=== PATIENT | male | born 1930 | race Caucasian/White ===

== ENCOUNTER 2018-02-14 19:31 | Inpatient (IN) ==
--- NOTE | 2018-02-14 20:11 | Emergency Department Note ---
Weakness HPI - General Chief complaint: Weakness Stated complaint: weakness Time Seen by Provider: 02/14/18 19:43 Source: patient Mode of arrival: wheelchair Limitations: no limitations - History of Present Illness HPI Narrative: This 87-year-old gentleman comes emergency room brought by family because of abnormal breathing. Patient reports that he is quite tired but attributes this to his sore back and difficulties laying down in his mattress etc. is a good historian and reports that she noticed his chest moving up and down in the just has not been breathing normally. It seems like it started for him to breathe. He becomes quite short of breath with limited activity such as just walking a limited amount. He has had a gradual increase in swelling of his lower extremities over the last 1-2 months. They have not been weeping. He is inactive and felt some weakness. REVIEW OF SYSTEMS: Denies chest pain or palpitations. Denies wheeziness although he has had some moaning type of sounds when he is breathing per his . Denies abdominal pain, nausea or vomiting. No diarrhea or hematochezia but he has some chronic constipation for which he tries to take prunes or prune juice. He has a significant history of bad gas and belching. No complaints of dysuria or frequency or prostate problems. 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 Some depression after he had to close a somnolent 2014. Denies headaches. Has felt some fatigue. - Related Data Home Medications Medication Instructions Recorded Confirmed Digoxin [Digitek] 125 mcg PO Q3-4DAYS 02/14/18 02/14/18 Diltiazem [Cardizem Cd] 240 mg PO DAILY 02/14/18 02/14/18 Furosemide [Lasix] 40 mg PO BID 02/14/18 02/14/18 Levothyroxine [Synthroid] 50 mcg PO HS 02/14/18 02/14/18 Lisinopril [Zestril] 10 mg PO QDAY 02/14/18 02/14/18 Potassium Chloride [Kdur] 20 meq PO DAILY 02/14/18 02/14/18 Allergies Allergy/AdvReac Type Severity Reaction Status Date / Time No Known Drug Allergies Allergy Verified 02/14/18 19:36 Past Medical History - Past Medical History Medical history: Reports: CHF (Admitted 2002. Sees Dr[address] Rico every 3-4 months.) , hypertension, hypothyroidism, obesity (morbid). Denies: cancer, COPD, CVA, DM , myocardial infarction, TIA - Social History smoking status: Never smoker Physical Exam Limitations: no limitations General appearance: alert, in no apparent distress Head: atraumatic, normocephalic Eye: Present: EOMI, conjunctival injection, other (Moderate amount of yellow white mucoid discharge in all 4 corners of his eyes.) ENT: mucous membranes moist, other Neck: Present: trachea midline Respiratory: Present: prolonged expiratory phase (With some abdominal). Absent : respiratory distress, wheezes, stridor, accessory muscle use Cardiovascular: Present: regular rate, normal rhythm. Absent: systolic murmur, diastolic murmur Abdominal: Present: soft, other (Morbidly large and domed.). Absent: distention , tenderness, guarding, rebound, rigidity, organomegaly, mass Extremities: Present: pretibial edema (Massive 3-4+ bilateral). Absent: calf tenderness Neurological: Present: alert, oriented X3 Psychiatric: Present: normal affect, normal mood Skin: Present: warm, dry Course Course Narrative: 7:53 PM Increase in shortness of breath type of symptoms in a morbidly obese massively edematous pleasant gentleman. Difficulties getting his saturations above 80% with him lying down. Sitting up in triage he was 90+ percent. We will start with a rainbow of labs plus an ABG, chest x-ray. EKG demonstrates right bundle branch block with small Q's in V1 and V2 and atrial fibrillation without rapid ventricular response, rate in the 70s. Vital Signs Temperature 97.1 F 02/14/18 19:31 Pulse Rate 108 H 02/14/18 19:31 Respiratory Rate 22 02/14/18 19:31 Blood Pressure 143/71 02/14/18 19:31 Pulse Oximetry (%) 99 02/14/18 19:31 Temperature 97.1 F 02/14/18 19:31 Pulse Rate 73 02/14/18 21:15 Respiratory Rate 21 02/14/18 21:15 Blood Pressure 138/81 02/14/18 20:34 Pulse Oximetry (%) 93 02/14/18 21:15 Weakness - MDM Narrative Medical decision making narrative: ABG with chronic respiratory failure (HC03 of 38.8) and acute component (pH 7.31 , PC02 of 77). Chest XRAY with at least moderate CHF and gross cardiomegaly. ECG - a fib; rate controlled. RBBB. BiPAP added and patient resting well. FiO2 at 28% and sats running 88%. Aguilar also placed. I spoke with patient regarding his end-of-life wishes. He indicates that he does not want to be left in a prolonged debilitated state dependent on machines or tubes or interventions that are aggressive he has not specifically spoken with his family that he remembers. However, his reports filling out a form for herself with the assistance of their daughter who is an civil rights attorney and she believes that one was completed also for Mr. Rock. She will check in the morning. A copy can be faxed hopefully. I spoke with Dr. Frankel, hospitalist, after noting availability of an ICU bed. He kindly accepted care of this patient. - Lab Data Result diagrams: 02/14/18 20:15 02/14/18 20:15 Lab Results 02/14/18 02/14/18 02/14/18 Range/Units 20:15 20:15 20:15 WBC 10.3 (4.5-11.0) K/mcL RBC 5.37 (4.50-5.90) M/mcL Hgb 16.1 (13.5-16.5) g/dL Hct 50.6 (41.0-55.0) % MCV 94.3 (80.0-100.0) fL MCH 30.0 (26.0-34.0) pg MCHC 31.8 (31.0-36.0) g/dL RDW 16.6 H (11.5-14.5) % Plt Count 206 (140-440) K/mcL MPV 8.4 (7.4-10.4) fL Gran % 74.3 (38.0-78.0) % Lymph % (Auto) 16.7 (15.5-49.0) % [place] % (Auto) 7.8 (1.0-12.0) % Eos % (Auto) 0.8 (0.0-7.0) % Baso % (Auto) 0.4 (0.0-2.0) % Gran # 7.6 (1.8-8.0) K/mcL Lymph # (Auto) 1.7 (1.5-4.8) K/mcL [place] # (Auto) 0.8 (0.1-0.9) K/mcL Eos # (Auto) 0.1 (0.0-0.7) K/mcL Baso # (Auto) 0 (0.0-0.3) K/mcL Sodium 134 (133-145) mmol/L Potassium 5.1 (3.3-5.1) mmol/L Chloride 91 L (96-108) mmol/L Carbon Dioxide 33 H (22-30) mmol/L Anion Gap 10.0 (8-16) BUN 16 (8-23) mg/dl Creatinine 1.2 (0.7-1.2) mg/dl GFR Calculation 54 Glucose 97 (70-105) mg/dL Calcium 9.2 (8.6-10.4) mg/dl Total Bilirubin 0.5 (0.0-1.0) mg/dL AST 19 (0-37) U/l ALT 6 (0-40) U/l Alkaline Phosphatase 83 (39-117) U/L Total Creatine Kinase 51 (24-195) IU/L Troponin T (0-0.03) ng/ml NT-Pro-B Natriuret Pep 784.7 H (0-450) pg/ml Total Protein 7.3 (5.9-8.4) gm/dL Albumin 3.4 (3.2-5.2) gm/dL Globulin 3.9 H (2.2-3.7) gm/dL Albumin/Globulin Ratio 0.9 L (1.0-2.3) Digoxin ng/mL Digoxin Dose Digox Last Dose Time 02/14/18 02/14/18 Range/Units 20:15 20:15 WBC (4.5-11.0) K/mcL RBC (4.50-5.90) M/mcL Hgb (13.5-16.5) g/dL Hct (41.0-55.0) % MCV (80.0-100.0) fL MCH (26.0-34.0) pg MCHC (31.0-36.0) g/dL RDW (11.5-14.5) % Plt Count (140-440) K/mcL MPV (7.4-10.4) fL Gran % (38.0-78.0) % Lymph % (Auto) (15.5-49.0) % [place] % (Auto) (1.0-12.0) % Eos % (Auto) (0.0-7.0) % Baso % (Auto) (0.0-2.0) % Gran # (1.8-8.0) K/mcL Lymph # (Auto) (1.5-4.8) K/mcL [place] # (Auto) (0.1-0.9) K/mcL Eos # (Auto) (0.0-0.7) K/mcL Baso # (Auto) (0.0-0.3) K/mcL Sodium (133-145) mmol/L Potassium (3.3-5.1) mmol/L Chloride (96-108) mmol/L Carbon Dioxide (22-30) mmol/L Anion Gap (8-16) BUN (8-23) mg/dl Creatinine (0.7-1.2) mg/dl GFR Calculation Glucose (70-105) mg/dL Calcium (8.6-10.4) mg/dl Total Bilirubin (0.0-1.0) mg/dL AST (0-37) U/l ALT (0-40) U/l Alkaline Phosphatase (39-117) U/L Total Creatine Kinase (24-195) IU/L Troponin T < 0.01 (0-0.03) ng/ml NT-Pro-B Natriuret Pep (0-450) pg/ml Total Protein (5.9-8.4) gm/dL Albumin (3.2-5.2) gm/dL Globulin (2.2-3.7) gm/dL Albumin/Globulin Ratio (1.0-2.3) Digoxin 0.3 ng/mL Digoxin Dose Not Reportable Digox Last Dose Time Not Reportable - Radiology Data Radiology results reviewed: Yes I reviewed the patient's radiology results. - EKG Data EKG results narrative: No acute coronary syndrome findings. This ECG will be read by a pulp cooker. Disposition Pt seen by SHIP ENGINEER/PA only: No Clinical Impression: Anasarca CHF (congestive heart failure), NYHA class III Qualifiers: Congestive heart failure type: unspecified Qualified Code(s): I50.9 - Heart failure, unspecified Respiratory failure, [id number] Qualifiers: Respiratory failure complication: hypoxia and hypercapnia Qualified Code(s): J96.21 - Acute and chronic respiratory failure with hypoxia; J96.22 - Acute and chronic respiratory failure with hypercapnia Disposition: Home, Self-Care Condition: Serious Referrals: Petr Coto MD [Primary Care Provider] -
[2018-02-14] MEDS ORDERED: FUROSEMIDE 40 MG/4 ML VIAL IV ONE (20:28)
[2018-02-14 20:49] LABS: Basophils # (Auto) 0 K/mcL (0.0-0.3); Basophils % (Auto) 0.4 % (0.0-2.0); Eosinophils # (Auto) 0.1 K/mcL (0.0-0.7); Eosinophils % (Auto) 0.8 % (0.0-7.0); Granulocytes % (Auto) 74.3 % (38.0-78.0); Lymphocytes # (Auto) 1.7 K/mcL (1.5-4.8); Lymphocytes % (Auto) 16.7 % (15.5-49.0); Mean Cell Volume 94.3 fL (80.0-100.0); Mean Corpuscular HGB Conc 31.8 g/dL (31.0-36.0); Monocytes # (Auto) 0.8 K/mcL (0.1-0.9); Monocytes % (Auto) 7.8 % (1.0-12.0); Platelet Count 206 K/mcL (140-440); RBC 5.37 M/mcL (4.50-5.90); Red Cell Distribution Width 16.6 % (11.5-14.5)
[2018-02-14 21:09] LABS: proBNP 784.7 pg/ml (0-450)
[2018-02-14 21:11] LABS: ALT/SGPT 6 U/l (0-40); Albumin 3.4 gm/dL (3.2-5.2); Albumin/Globulin Ratio 0.9 (1.0-2.3); Alkaline Phosphatase 83 U/L (39-117); Blood Urea Nitrogen 16 mg/dl (8-23)
--- NOTE | 2018-02-14 21:58 | Internal Med History&Physical ---
Medical - H&P: HPI Patient information: Note initiated : 02/14/18 at 9:55 pm Service Date, if different from initiated Date: [] Patient: Walker Rock a 87 y/o M admitted on for weakness. Chief Complaint: [] History of present illness: Mr. Rock is a 87 year old M with history of morbid obesity, congestive heart failure, atrial fibrillation, obstructive sleep apnea not using CPAP. The patient notes he was doing well approximately a week ago when he came down with a viral syndrome-head cold. The patient notes that since then he has not been doing very well. He has been more tired and fatigued than usual. He has been having some runny nose cough and just a generalized sensation of weakness. This has progressively gotten worse. At baseline patient does not do much activities however the and the patient denies any shortness of breath or any change in his activity level. Today the noticed that his breathing pattern was abnormal and he showed signs of labored breathing and therefore they brought him to the hospital. The patient denies any complaints like headache dizziness chest pain palpitations shortness of breath any present cough no GI or symptoms. He has chronic arthritis related pain mostly in the left knee which he plans to have surgery for. The patient notes that he may have had increased swelling in his feet. He denies any noncompliance with medications, denies any increased use of salt. Increase consumption of fluids. In the emergency room the patient was afebrile, heart rate 76 respirations 24 blood pressure 138/81, he was hypoxic with the oxygen saturation in the 70s. Labs showed hemoglobin of 16, WBC 10.3, platelets 206. Sodium 134 potassium 5.1 , chloride 91, bicarbonate 33 BUN 16 creatinine 1.2 glucose 97 BNP is 784. Digoxin level pending. ABG was drawn which showed pH of 7.31 PCO2 77 PO2 50 this was on 3 L of oxygen. The patient was placed on BiPAP. Chest x-ray showed bilateral increased interstitial markings consistent with heart failure, he also had cardiomegaly. EKG showed low voltage, right axis, atrial fibrillation, right bundle branch block. No previous EKG to compare. I reviewed his previous echocardiogram done in 2015 which showed mild LV enlargement, moderate LVH and normal systolic function. He also had a cardiac perfusion study done in the same month which showed ejection fraction of 51% and inferior wall hypoperfusion which was attributed to diaphragmatic artifact. Given that the patient has had significant volume overload issues, hypoxic requiring BiPAP to maintain oxygen levels he was admitted to PCU for further management All systems: reviewed and no additional remarkable complaints except as stated ( As per HPI rest negative) Medical - H&P: PMH Medical history: GABBI-noncompliant with CPAP Congestive heart failure Gout Osteoarthritis Hypothyroidism Atrial fibrillation Morbid obesity Surgical history: Abdominal hernia surgery Family history: reviewed and not pertinent Social history: Lives with Social alcohol use Denies any smoking Denies decreased substance use Medical - H&P: Meds Home Medications Medication Instructions Recorded Confirmed Type Digoxin [Digitek] 125 mcg PO Q3-4DAYS 02/14/18 02/14/18 History Diltiazem [Cardizem Cd] 240 mg PO DAILY 02/14/18 02/14/18 History Furosemide [Lasix] 40 mg PO BID 02/14/18 02/14/18 History Levothyroxine [Synthroid] 50 mcg PO HS 02/14/18 02/14/18 History Lisinopril [Zestril] 10 mg PO QDAY 02/14/18 02/14/18 History Potassium Chloride [Kdur] 20 meq PO DAILY 02/14/18 02/14/18 History Allergies Allergy/AdvReac Type Severity Reaction Status Date / Time No Known Drug Allergies Allergy Verified 02/14/18 19:36 Medical - H&P: Exam - Constitutional Vitals: Temp Pulse Resp BP Pulse Ox 97.1 F 64 13 138/81 94 02/14/18 19:31 02/14/18 21:50 02/14/18 21:50 02/14/18 20:34 02/14/18 21:50 Exam: GENERAL: The patient is a well-developed, well-nourished in no apparent distress. Is alert and oriented x3. Morbidly obese in BiPAP VITAL SIGNS: Reviewed and as noted elsewhere. HEENT: Head is normocephalic and atraumatic. Extraocular muscles are intact. Pupils are equal, round, and reactive to light. Nares appeared normal. Mouth appears any without lesions. Mucous membranes are moist. Mild discharge in the inner canthus of both eyes NECK: Normal to inspection, Supple, No lymphadenopathy or thyromegaly. Short neck LUNGS: Air entry equal on both sides, bilateral basilar crackles noted mild, patient in BiPAP not in distress. HEART: Regular rate and rhythm irregular, S1 and S2 heard, no Gallop, S3 or Rub Noted, No Gross murmur heard. ABDOMEN: Soft, nontender, and nondistended. Positive bowel sounds. No hepatosplenomegaly was noted. Large pannus, difficult to do to palpation, large scars noted from previous hernia surgery EXTREMITIES: No cyanosis, clubbing, rash, lesions, edema is present++++ NEUROLOGIC: Cranial nerves II through XII are grossly intact. Motor and Sensory System Grossly Intact PSYCHIATRIC: Normal affect, Normal Mood. Appropriate Behavior. SKIN: No ulceration or wounds noted, No jaundice, No rash noted. Medical - H&P: Reslt - Labs CBC & Chem 7: 02/14/18 20:15 02/14/18 20:15 Labs: Short CBC 02/14/18 Range/Units 20:15 WBC 10.3 (4.5-11.0) K/mcL Hgb 16.1 (13.5-16.5) g/dL Hct 50.6 (41.0-55.0) % Plt Count 206 (140-440) K/mcL BMP 02/14/18 20:15 Sodium 134 Potassium 5.1 Chloride 91 L Carbon Dioxide 33 H BUN 16 Creatinine 1.2 Glucose 97 Calcium 9.2 Cardiac Enzymes 02/14/18 02/14/18 Range/Units 20:15 20:15 Total Creatine Kinase 51 (24-195) IU/L Troponin T < 0.01 (0-0.03) ng/ml Liver Function 02/14/18 Range/Units 20:15 Total Bilirubin 0.5 (0.0-1.0) mg/dL AST 19 (0-37) U/l ALT 6 (0-40) U/l Alkaline Phosphatase 83 (39-117) U/L Albumin 3.4 (3.2-5.2) gm/dL Medical - H&P: A/P - Narrative A/P Narrative: A/P Acute hypoxic Hypercapnic respiratory failure Congestive heart failure/ Systolic and diastolic Morbid Obesity Atrial fibrillation Gout Hypothyroidism Osteoarthritis Plan Admit to PCU status BIPAP to maintain oxygen levels Aguilar in place, lasix given in ER draining well IV lasix 40mg bid for now, see how he responds monitor electrolytes, await dig level and tsh continue home medications for chr medical issues Dr Rico seems to be the systems development manager, not sure why pt is not anticoagulated for afib DVT - lovenox sq Diet Cardiac DNR code status, reviewed with patient, present, they have a will.
[2018-02-14] MEDS ORDERED: ACETAMINOPHEN 325 MG TABLET PO PRN (22:48)
[2018-02-14] MEDS ORDERED: NALOXONE HCL 0.4 MG/ML VIAL IV PRN (22:48)
[2018-02-14] MEDS ORDERED: ENOXAPARIN 40 MG/0.4 ML SYRINGE ONE (22:57)
[2018-02-14] MEDS: ENOXAPARIN 40 MG/0.4 ML SYRINGE SQ SCH (23:20)
[2018-02-14] MEDS: 0.9 % SODIUM CHLORIDE 10 ML SYRINGE IV SCH (23:21)
[2018-02-15] MEDS: 0.9 % SODIUM CHLORIDE 10 ML SYRINGE IV SCH ×3 (05:16→21:13)
--- NOTE | 2018-02-15 06:06 | XRay Report ---
CLINICAL INFORMATION: Chest pain COMPARISON: None. FINDINGS: The heart is markedly enlarged. Is mild mediastinal widening. Pulmonary vessels show only mild tension redistribution moderate sized patchy bibasilar infiltrates noted with small bilateral pleural effusions IMPRESSION: Mild CHF Moderate patchy bibasilar infiltrates or atelectasis. Consider aspiration Possible malpositioned right PICC line over the right IJ versus overlying wire or catheter. Please correlate with the presence of a PICC line Interpreted and Authenticated by: Joce Sharpe 02/15/18
[2018-02-15 06:59] LABS: Basophils # (Auto) 0 K/mcL (0.0-0.3); Basophils % (Auto) 0.2 % (0.0-2.0); Eosinophils # (Auto) 0.1 K/mcL (0.0-0.7); Eosinophils % (Auto) 1.5 % (0.0-7.0); Granulocytes % (Auto) 65.2 % (38.0-78.0); Lymphocytes # (Auto) 1.9 K/mcL (1.5-4.8); Lymphocytes % (Auto) 20.8 % (15.5-49.0); Mean Cell Volume 95.3 fL (80.0-100.0); Mean Corpuscular HGB Conc 31.3 g/dL (31.0-36.0); Mean Corpuscular Hemoglobin 29.8 pg (26.0-34.0); Monocytes # (Auto) 1.1 K/mcL (0.1-0.9); Monocytes % (Auto) 12.3 % (1.0-12.0); Platelet Count 187 K/mcL (140-440); RBC 4.95 M/mcL (4.50-5.90); Red Cell Distribution Width 16.3 % (11.5-14.5)
--- NOTE | 2018-02-15 07:04 | XRay Report ---
CLINICAL INFORMATION: CHF COMPARISON: 02/14/2018 FINDINGS: Heart is decreased in size, but remains moderately enlarged. Mediastinum grossly normal. Pulmonary vessels returned to normal in caliber. No edema. Mild right basilar infiltrate or atelectasis shows slight worsening . No effusions IMPRESSION: 1. Resolution of CHF 2. Small patchy bibasilar atelectasis or infiltrate right base - worsening Interpreted and Authenticated by: Joce Sharpe 02/15/18
[2018-02-15 07:41] LABS: ALT/SGPT 5 U/l (0-40); Albumin 3.1 gm/dL (3.2-5.2); Alkaline Phosphatase 67 U/L (39-117); Bilirubin,Direct < 0.2 mg/dL (0.0-0.3); Blood Urea Nitrogen 15 mg/dl (8-23); Gamma Glutamyl Transpeptidase 12 U/L (8-61); Uric Acid 9.3 mg/dL (2.5-8.0)
[2018-02-15] MEDS: POTASSIUM CHLORIDE 20 MEQ TABLET PO SCH (08:58)
[2018-02-15] MEDS: FUROSEMIDE 40 MG/4 ML VIAL IV SCH ×2 (08:58→21:12)
[2018-02-15] MEDS: PIPERACILLIN SODIUM/TAZOBACTAM 3.375 GM in DEXTROSE 5% IN WATER 50 ML IV SCH ×2 (08:59→12:46)
[2018-02-15] MEDS ORDERED: DILTIAZEM 240 MG CAP.XL.24H PO SCH (09:00)
[2018-02-15] MEDS ORDERED: LISINOPRIL 10 MG TABLET PO SCH (09:00)
[2018-02-15] MEDS ORDERED: DIGOXIN 125 MCG TABLET PO SCH (14:00)
--- NOTE | 2018-02-15 14:26 | Internal Med Progress Note ---
Medical - PN: Subj Patient information: Note initiated : 02/15/18 at 2:24 pm Service Date, if different from initiated Date: [] Patient: Walker Rock a 87 y/o M admitted on 02/14/18 for Weakness/Hypoxic Hypercapnic Respiratory Failure. Chief Complaint: [] Interval history: Mr. Rock is a 87 year old M with history of morbid obesity, congestive heart failure, atrial fibrillation, obstructive sleep apnea not using CPAP. The patient notes he was doing well approximately a week ago when he came down with a viral syndrome-head cold. The patient notes that since then he has not been doing very well. He has been more tired and fatigued than usual. He has been having some runny nose cough and just a generalized sensation of weakness. This has progressively gotten worse. At baseline patient does not do much activities however the and the patient denies any shortness of breath or any change in his activity level. Today the noticed that his breathing pattern was abnormal and he showed signs of labored breathing and therefore they brought him to the hospital. The patient denies any complaints like headache dizziness chest pain palpitations shortness of breath any present cough no GI or symptoms. He has chronic arthritis related pain mostly in the left knee which he plans to have surgery for. The patient notes that he may have had increased swelling in his feet. He denies any noncompliance with medications, denies any increased use of salt. Increase consumption of fluids. In the emergency room the patient was afebrile, heart rate 76 respirations 24 blood pressure 138/81, he was hypoxic with the oxygen saturation in the 70s. Labs showed hemoglobin of 16, WBC 10.3, platelets 206. Sodium 134 potassium 5.1 , chloride 91, bicarbonate 33 BUN 16 creatinine 1.2 glucose 97 BNP is 784. Digoxin level pending. ABG was drawn which showed pH of 7.31 PCO2 77 PO2 50 this was on 3 L of oxygen. The patient was placed on BiPAP. Chest x-ray showed bilateral increased interstitial markings consistent with heart failure, he also had cardiomegaly. EKG showed low voltage, right axis, atrial fibrillation, right bundle branch block. No previous EKG to compare. I reviewed his previous echocardiogram done in 2015 which showed mild LV enlargement, moderate LVH and normal systolic function. He also had a cardiac perfusion study done in the same month which showed ejection fraction of 51% and inferior wall hypoperfusion which was attributed to diaphragmatic artifact. Given that the patient has had significant volume overload issues, hypoxic requiring BiPAP to maintain oxygen levels he was admitted to PCU for further management 02/15 Pt seen examined, no acute overnight events, diuresed well overnight, tolerated bipap well He is still needing 5L oxygen via NC after removing the bipap to maintain the oxygen levels > 90 His HR dropped down, last night, and his bp too dropped after lasix will hold cardizem and lisinopril for now and try to diurese him more will hold off on the digoxin given bradycardia. Initially concern for pna on yesterday cxr, zosyn was started, but repeat CXR shows likely atelectasis, pt does not have fever or chills, no white count, will d/c abx Continue with IV lasix, off bp meds for now, bipap for oxygenation. echo ordered await result Pertinent ROS: Denies headache, dizziness Denies chest pain, palpitations Denies cough or shortness of breath Denies abdominal pain, nausea or vomiting. - Constitutional Vitals: Vital Signs Temp Pulse Resp BP Pulse Ox 97 F 53 L 17 115/57 97 02/15/18 11:45 02/15/18 14:05 02/15/18 14:05 02/15/18 14:02 02/15/18 14:05 Period Temp Pulse Resp BP Sys/Sims Pulse Ox Last 24 Hr 97 F-98.0 F 45-108 8-27 90-158/51-131 85-99 Intake and Output 02/15/18 02/15/18 02/15/18 05:59 13:59 21:59 Intake Total 970 / 970 50 / 50 Output Total 2375 / 2375 1500 / 1500 400 / 400 Balance -2375 / -2375 -530 / -530 -350 / -350 Weight 385 lb 12.8 oz Intake & Output: Intake & Output 02/15/18 02/15/18 02/15/18 05:59 13:59 21:59 Intake Total 970 / 970 50 / 50 Output Total 2375 / 2375 1500 / 1500 400 / 400 Balance -2375 / -2375 -530 / -530 -350 / -350 Weight 385 lb 12.8 oz Intake: IV 50 / 50 50 / 50 Zosyn 3.375 gm In Dextrose 5% 50 / 50 50 / 50 in Water 50 ml @ 100 mls/hr IV Q6H [facility] Rx#:[id number] Oral 920 / 920 Output: Urine Catheter Amount 1175 / 1175 1500 / 1500 400 / 400 Void Amount 1200 / 1200 Other: Meal Lunch Percent of Meal Consumed 100% Feeding Ability Independent Exam: Constitutional; Afebrile, cooperative, alert, not in distress. Eyes- No icterus, , No periorbital swelling, bilateral mild conjunctival discharge. Ears- Ext ear normal, very hard to conversation. Neck- Midline trachea, supple Respiratory system: Air Entry equal on both sides, basilar crackles improved from last night. CVS- Rate rhythm irregular, S1,S2 heard, no gallop, no rub. Abdomen- Soft nontender abdomen, no organomegaly, no tenderness, no guarding or rigidity, REGISTERED NURSE NURSERY- AOOx3, moving all extremities, no gross focal deficit noted. extremities: Still has significant edema, somewhat less tense than yesterday Medical - PN: Obj Da - Labs CBC & Chem 7: 02/15/18 04:03 02/15/18 04:03 Labs: Abnormal Lab Results 02/15/18 02/15/18 02/14/18 04:03 04:03 20:15 RDW 16.3 H Swain % (Auto) 12.3 H Swain # (Auto) 1.1 H Chloride 91 L Carbon Dioxide 38 H Glucose 55 L Uric Acid 9.3 H NT-Pro-B Natriuret Pep Albumin 3.1 L Globulin Albumin/Globulin Ratio TSH 6.46 H 02/14/18 02/14/18 20:15 20:15 RDW 16.6 H Swain % (Auto) Swain # (Auto) Chloride 91 L Carbon Dioxide 33 H Glucose Uric Acid NT-Pro-B Natriuret Pep 784.7 H Albumin Globulin 3.9 H Albumin/Globulin Ratio 0.9 L TSH Meds: Medications Acetaminophen (Tylenol) 650 mg PO Q4-6HP PRN PRN Reason: PAIN/FEVER > 101 Digoxin (Lanoxin) 125 mcg PO MoFr@1400 [facility] Enoxaparin Sodium (Lovenox) 40 mg SQ DAILY [facility] Last Admin: 02/14/18 23:20 Dose: Not Given Furosemide (Lasix) 40 mg IV Q12 [facility] Last Admin: 02/15/18 08:58 Dose: 40 mg Piperacillin Sod/Tazobactam (Sod 3.375 gm/ Dextrose) 50 mls @ 100 mls/hr IV Q6H [facility] Last Infusion: 02/15/18 14:11 Dose: Infused Levothyroxine Sodium (Synthroid) 50 mcg PO HS [facility] Naloxone HCl (Narcan) 0.1 mg IV Q2MIN PRN PRN Reason: Opiate Reversal Potassium Chloride (Kdur) 20 meq PO QAMCC [facility] Last Admin: 02/15/18 08:58 Dose: 20 meq Sodium Chloride (Saline Flush) 10 ml IV Q8 [facility] Last Admin: 02/15/18 05:16 Dose: 10 ml Medical - PN: A/P - Time Spent With Patient Total time spent is greater than 50% in coordination of care (as documented) at patient's floor/unit and/or counseling patient: - Narrative A/P Narrative: A/P Acute hypoxic Hypercapnic respiratory failure Congestive heart failure/ Systolic and diastolic Morbid Obesity Atrial fibrillation Gout Hypothyroidism Osteoarthritis conjunctivits Bradycardia due to medications Plan continue to monitor on PCP status BIpap to maintain respiratory status, patients resp status is improving. IV lasix bid hold digoxin, lisinopril and cardizem, given low bp and bradycardia tsh mildly elevated but pt was taking synthroid 5 days a week, should now take daily. Dr Rico seems to be the surg tech, not sure why pt is not anticoagulated for afib, as per the nursing staff, the pt too does not know ciprofloxacin ggt for eyes, to help with increased secretions. DVT - lovenox sq Diet Cardiac DNR code status, reviewed with patient, present, they have a will. Medical - PN: Qual - VTE Deep Vein Thrombosis/Pulmonary Embolism Present on Admission: No
[2018-02-15] MEDS: ENOXAPARIN 40 MG/0.4 ML SYRINGE SQ SCH (14:37)
[2018-02-15] MEDS ORDERED: CIPROFLOXACIN 0.3% OPHTH DROPS BOTTLE 5 ML OU SCH (15:00)
[2018-02-15] MEDS ORDERED: ERYTHROMYCIN OPHTH OINT 3.5GM TUBE OU ONE (17:48)
[2018-02-15] MEDS ORDERED: LEVOTHYROXINE 25 MCG TABLET PO SCH ×2 (21:00)
[2018-02-15] MEDS: LEVOTHYROXINE 25 MCG TABLET PO SCH (21:13)
[2018-02-15] MEDS: ERYTHROMYCIN OPHTH OINT 3.5GM TUBE OU SCH (21:14)
[2018-02-16] MEDS: 0.9 % SODIUM CHLORIDE 10 ML SYRINGE IV SCH ×3 (05:41→21:51)
[2018-02-16 07:17] LABS: Basophils # (Auto) 0 K/mcL (0.0-0.3); Basophils % (Auto) 0.2 % (0.0-2.0); Eosinophils # (Auto) 0.1 K/mcL (0.0-0.7); Eosinophils % (Auto) 1.3 % (0.0-7.0); Granulocytes % (Auto) 69.6 % (38.0-78.0); Lymphocytes # (Auto) 1.7 K/mcL (1.5-4.8); Lymphocytes % (Auto) 17.5 % (15.5-49.0); Mean Cell Volume 95.4 fL (80.0-100.0); Mean Corpuscular HGB Conc 31.7 g/dL (31.0-36.0); Mean Corpuscular Hemoglobin 30.2 pg (26.0-34.0); Monocytes # (Auto) 1.1 K/mcL (0.1-0.9); Monocytes % (Auto) 11.4 % (1.0-12.0); Platelet Count 187 K/mcL (140-440); RBC 4.95 M/mcL (4.50-5.90); Red Cell Distribution Width 16.4 % (11.5-14.5)
[2018-02-16 07:40] LABS: ALT/SGPT < 5 U/l (0-40); Albumin 2.7 gm/dL (3.2-5.2); Albumin/Globulin Ratio 0.8 (1.0-2.3); Alkaline Phosphatase 68 U/L (39-117); Bilirubin,Direct < 0.2 mg/dL (0.0-0.3); Blood Urea Nitrogen 17 mg/dl (8-23); Gamma Glutamyl Transpeptidase 10 U/L (8-61); Uric Acid 9.2 mg/dL (2.5-8.0)
--- NOTE | 2018-02-16 08:39 | Internal Med Progress Note ---
Medical - PN: Subj Patient information: Note initiated : 02/16/18 at 8:28 am Service Date, if different from initiated Date: [] Patient: Walker Rock a 87 y/o M admitted on 02/14/18 for Weakness/Hypoxic Hypercapnic Respiratory Failure. Chief Complaint: [] Interval history: Mr. Rock is a 87 year old M with history of morbid obesity, congestive heart failure, atrial fibrillation, obstructive sleep apnea not using CPAP. The patient notes he was doing well approximately a week ago when he came down with a viral syndrome-head cold. Pt notes legs been swelling for 2 weeks worse than usual as noted in shower chair. I reviewed his previous echocardiogram done in 2015 which showed mild LV enlargement, moderate LVH and normal systolic function. Noteable for RV dilatation and biatrial dilation. He also had a cardiac perfusion study done in the same month which showed ejection fraction of 51% and inferior wall hypoperfusion which was attributed to diaphragmatic artifact. Given that the patient has had significant volume overload issues, hypoxic requiring BiPAP to maintain oxygen levels he was admitted to PCU for further management 02/15 Pt seen examined, no acute overnight events, diuresed well overnight, tolerated bipap well He is still needing 5L oxygen via [place] after removing the bipap to maintain the oxygen levels > 90 His HR dropped down, last night, and his bp too dropped after lasix will hold cardizem and lisinopril for now and try to diurese him more will hold off on the digoxin given bradycardia. Initially concern for pna on yesterday cxr, zosyn was started, but repeat CXR shows likely atelectasis, pt does not have fever or chills, no white count, will d/c abx Continue with IV lasix, off bp meds for now, bipap for oxygenation. echo ordered await result 02/16 legs with chronic venous stasis but not cellulitis infection. Has diuresed 8kgs negative. Tolerating the mask for CPAP at night. CXR CHF not pneumonia. Pertinent ROS: legs swollen breathing better. eyes still matted but improving - Constitutional Vitals: Vital Signs Temp Pulse Resp BP Pulse Ox 97 F 86 17 126/66 91 02/15/18 15:00 02/16/18 07:53 02/16/18 07:53 02/16/18 07:01 02/16/18 07:53 Period Temp Pulse Resp BP Sys/Sims Pulse Ox Last 24 Hr 97 F-97 F 53-87 9-41 90-136/51-100 90-98 Intake and Output 02/15/18 02/16/18 02/16/18 21:59 05:59 13:59 Intake Total 290 / 290 Output Total 850 / 850 3450 / 3450 Balance -560 / -560 -3450 / -3450 Weight 371 lb 4.8 oz Intake & Output: Intake & Output 02/15/18 02/16/18 02/16/18 21:59 05:59 13:59 Intake Total 290 / 290 Output Total 850 / 850 3450 / 3450 Balance -560 / -560 -3450 / -3450 Weight 371 lb 4.8 oz Intake: IV 50 / 50 Zosyn 3.375 gm In Dextrose 5% 50 / 50 in Water 50 ml @ 100 mls/hr IV Q6H [facility] Rx#:[id number] Oral 240 / 240 Output: Urine Catheter Amount 850 / 850 3450 / 3450 Other: Meal Dinner Percent of Meal Consumed 100% General appearance: morbidly obese, no acute distress - Respiratory Respiratory exam: Present: CTAB - Cardiovascular Cardiovascular exam: Present: irregular rhythm (rate controlled), JVD Additional comments: 10 cm - Extremities Exam Extremities exam: Present: pedal edema Additional comments: 3+ bilateral to 2/3 up tibia - Skin Skin exam: Present: erythema (bilateral legs to mid calf. ) Medical - PN: Obj Da - Labs CBC & Chem 7: 02/16/18 05:05 02/16/18 05:05 Labs: Abnormal Lab Results 02/16/18 02/16/18 02/15/18 05:05 05:05 04:03 RDW 16.4 H [place] % (Auto) [place] # (Auto) 1.1 H Potassium 5.3 H Chloride 92 L 91 L Carbon Dioxide 37 H 38 H Anion Gap 7.0 L Glucose 60 L 55 L Uric Acid 9.2 H 9.3 H NT-Pro-B Natriuret Pep Albumin 2.7 L 3.1 L Globulin Albumin/Globulin Ratio 0.8 L TSH 02/15/18 02/14/18 02/14/18 04:03 20:15 20:15 RDW 16.3 H 16.6 H [place] % (Auto) 12.3 H [place] # (Auto) 1.1 H Potassium Chloride Carbon Dioxide Anion Gap Glucose Uric Acid NT-Pro-B Natriuret Pep Albumin Globulin Albumin/Globulin Ratio TSH 6.46 H 02/14/18 20:15 RDW [place] % (Auto) [place] # (Auto) Potassium Chloride 91 L Carbon Dioxide 33 H Anion Gap Glucose Uric Acid NT-Pro-B Natriuret Pep 784.7 H Albumin Globulin 3.9 H Albumin/Globulin Ratio 0.9 L TSH Meds: Medications Acetaminophen (Tylenol) 650 mg PO Q4-6HP PRN PRN Reason: PAIN/FEVER > 101 Enoxaparin Sodium (Lovenox) 40 mg SQ DAILY [facility] Last Admin: 02/15/18 14:37 Dose: 40 mg Erythromycin (Ilotycin Ophth Oint) 1 ribbon OU QID [facility] Stop: 02/20/18 20:59 Last Admin: 02/15/18 21:14 Dose: 1 ribbon Furosemide (Lasix) 80 mg IV Q8 [facility] Levothyroxine Sodium (Synthroid) 50 mcg PO [facility] Last Admin: 02/15/18 21:13 Dose: 50 mcg Metolazone (Zaroxolyn) 5 mg PO BID@0730,1600 [facility] Metoprolol Tartrate (Lopressor) 12.5 mg PO BID [facility] Naloxone HCl (Narcan) 0.1 mg IV Q2MIN PRN PRN Reason: Opiate Reversal Pot[facility] Last Admin: 02/15/18 08:58 Dose: 20 meq Sodium Chloride (Saline Flush) 10 ml IV Q8 [facility] Last Admin: 02/16/18 05:41 Dose: 10 ml - Imaging and cardiology Chest x-ray Status: image reviewed by me (CHF and cardiomegaly. no infiltrate) - ABG Interpretation Interpretation: respiratory acidosis - EKG Data -: EKG Interpreted by Myself (afib rbbb rate controlled ) Medical - PN: A/P - Time Spent With Patient Total time spent is greater than 50% in coordination of care (as documented) at patient's floor/unit and/or counseling patient: Greater than 35 minutes (1) Atrial fibrillation Status: Chronic Assessment and plan: rate controlled. Will change from dig and diltiazem to metoprolol for heart failure. goal HR below 80. 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
[2018-02-16] MEDS: POTASSIUM CHLORIDE 20 MEQ TABLET PO SCH (08:48)
[2018-02-16] MEDS: ENOXAPARIN 40 MG/0.4 ML SYRINGE SQ SCH (08:48)
[2018-02-16] MEDS: METOPROLOL TARTRATE 25 MG TABLET PO SCH ×2 (08:48→21:02)
[2018-02-16] MEDS: METOLAZONE 2.5 MG TABLET PO SCH ×2 (08:50→14:09)
[2018-02-16] MEDS: FUROSEMIDE 100 MG/10 ML VIAL IV SCH ×3 (09:13→21:51)
[2018-02-16] MEDS: ERYTHROMYCIN OPHTH OINT 3.5GM TUBE OU SCH ×4 (09:14→21:06)
[2018-02-16] MEDS: LEVOTHYROXINE 25 MCG TABLET PO SCH (21:02)
[2018-02-17] MEDS: METOLAZONE 2.5 MG TABLET PO SCH ×2 (05:28→13:46)
[2018-02-17] MEDS: 0.9 % SODIUM CHLORIDE 10 ML SYRINGE IV SCH ×3 (05:54→21:12)
[2018-02-17] MEDS: FUROSEMIDE 100 MG/10 ML VIAL IV SCH ×2 (05:54→15:33)
[2018-02-17 07:11] LABS: Basophils # (Auto) 0 K/mcL (0.0-0.3); Basophils % (Auto) 0.2 % (0.0-2.0); Eosinophils # (Auto) 0.1 K/mcL (0.0-0.7); Granulocytes % (Auto) 68.2 % (38.0-78.0); Lymphocytes # (Auto) 2.1 K/mcL (1.5-4.8); Lymphocytes % (Auto) 18.7 % (15.5-49.0); Mean Cell Volume 95.1 fL (80.0-100.0); Mean Corpuscular HGB Conc 31.8 g/dL (31.0-36.0); Mean Corpuscular Hemoglobin 30.3 pg (26.0-34.0); Monocytes # (Auto) 1.3 K/mcL (0.1-0.9); Monocytes % (Auto) 11.9 % (1.0-12.0); Platelet Count 188 K/mcL (140-440)
[2018-02-17 07:53] LABS: ALT/SGPT < 5 U/l (0-40); Albumin 3.2 gm/dL (3.2-5.2); Albumin/Globulin Ratio 0.9 (1.0-2.3); Alkaline Phosphatase 69 U/L (39-117); Bilirubin,Direct < 0.2 mg/dL (0.0-0.3); Blood Urea Nitrogen 21 mg/dl (8-23); Gamma Glutamyl Transpeptidase 11 U/L (8-61); Uric Acid 9.8 mg/dL (2.5-8.0)
[2018-02-17] MEDS: METOPROLOL TARTRATE 25 MG TABLET PO SCH ×2 (08:01→21:12)
[2018-02-17] MEDS: POTASSIUM CHLORIDE 20 MEQ TABLET PO SCH (08:05)
[2018-02-17] MEDS: ENOXAPARIN 40 MG/0.4 ML SYRINGE SQ SCH (08:06)
[2018-02-17] MEDS: ERYTHROMYCIN OPHTH OINT 3.5GM TUBE OU SCH ×4 (08:06→22:35)
--- NOTE | 2018-02-17 12:17 | Internal Med Progress Note ---
Medical - PN: Subj Patient information: Note initiated : 02/17/18 at 12:14 pm Service Date, if different from initiated Date: [] Patient: Walker Rock a 87 y/o M admitted on 02/14/18 for Weakness/Hypoxic Hypercapnic Respiratory Failure. Chief Complaint: [] Interval history: Mr. Rock is a 87 year old M with history of morbid obesity, congestive heart failure, atrial fibrillation, obstructive sleep apnea not previously diagnosed or using CPAP. Pt sats ok on 3lpm last night so was not treated with BIPAP. Pt with obesity hypoventilation and also a heavy snorer. 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 Pt accompanied by daughter and today. Pt agreeable to wt loss diet, wearing BIPAP here for all sleeping and at home. voiding lots of urine. legs using hose also. - Constitutional Vitals: Vital Signs Temp Pulse Resp BP Pulse Ox 97.2 F 62 16 107/65 94 02/17/18 11:28 02/17/18 11:47 02/17/18 11:47 02/17/18 11:28 02/17/18 11:47 Period Temp Pulse Resp BP Sys/Sims Pulse Ox Last 24 Hr 97.1 F-97.4 F 52-78 10- 98-127/59-81 88-100 Intake and Output 02/16/18 02/17/18 02/17/18 21:59 05:59 13:59 Intake Total 600 / 600 Output Total 4100 / 4100 3200 / 3200 2325 / 2325 Balance -3500 / -3500 -3200 / -3200 -2325 / -2325 Weight 364 lb 6.4 oz Intake & Output: Intake & Output 02/16/18 02/17/18 02/17/18 21:59 05:59 13:59 Intake Total 600 / 600 Output Total 4100 / 4100 3200 / 3200 2325 / 2325 Balance -3500 / -3500 -3200 / -3200 -2325 / -2325 Weight 364 lb 6.4 oz Intake: Oral 600 / 600 Output: Urine Catheter Amount 4100 / 4100 3200 / 3200 2325 / 2325 Other: Meal Dinner Percent of Meal Consumed 100% Feeding Ability Independent General appearance: cooperative, morbidly obese, no acute distress - Respiratory Respiratory exam: Present: rales (trace in bases only) - Cardiovascular Cardiovascular exam: Present: normal rate and rhythm, irregular rhythm (rate is controlled) - Extremities Exam Extremities exam: Present: pedal edema Additional comments: 3+ but improved vs yesterday - Psychiatric Psychiatric exam: Present: normal affect, normal mood Medical - PN: Obj Da - Labs CBC & Chem 7: 02/17/18 04:03 02/17/18 04:03 Labs: Abnormal Lab Results 02/17/18 02/17/18 02/16/18 04:03 04:03 05:05 WBC 11.1 H RDW 16.0 H [place] % (Auto) [place] # (Auto) 1.3 H Potassium 5.3 H Chloride 85 L 92 L Carbon Dioxide 43 H* 37 H Anion Gap 7.0 L Glucose 52 L 60 L Uric Acid 9.8 H 9.2 H Phosphorus 4.7 H NT-Pro-B Natriuret Pep Albumin 2.7 L Globulin Albumin/Globulin Ratio 0.9 L 0.8 L TSH 02/16/18 02/15/18 02/15/18 05:05 04:03 04:03 WBC RDW 16.4 H 16.3 H [place] % (Auto) 12.3 H [place] # (Auto) 1.1 H 1.1 H Potassium Chloride 91 L Carbon Dioxide 38 H Anion Gap Glucose 55 L Uric Acid 9.3 H Phosphorus NT-Pro-B Natriuret Pep Albumin 3.1 L Globulin Albumin/Globulin Ratio TSH 02/14/18 02/14/18 02/14/18 20:15 20:15 20:15 WBC RDW 16.6 H [place] % (Auto) [place] # (Auto) Potassium Chloride 91 L Carbon Dioxide 33 H Anion Gap Glucose Uric Acid Phosphorus NT-Pro-B Natriuret Pep 784.7 H Albumin Globulin 3.9 H Albumin/Globulin Ratio 0.9 L TSH 6.46 H Meds: Medications Acetaminophen (Tylenol) 650 mg PO Q4-6HP PRN PRN Reason: PAIN/FEVER > 101 Last Admin: 02/16/18 09:14 Dose: 650 mg Enoxaparin Sodium (Lovenox) 40 mg SQ DAILY [facility] Last Admin: 02/17/18 08:06 Dose: 40 mg Erythromycin (Ilotycin Ophth Oint) 1 ribbon OU QID [facility] Stop: 02/20/18 20:59 Last Admin: 02/17/18 08:06 Dose: 1 ribbon Furosemide (Lasix) 80 mg IV Q8 [facility] Last Admin: 02/17/18 05:54 Dose: 80 mg Levothyroxine Sodium (Synthroid) [address] [facility] Metolazone (Zaroxolyn) 5 mg PO BID@0530,1330 [facility] Last Admin: 02/17/18 05:28 Dose: 5 mg Metoprolol Tartrate (Lopressor) 12.5 mg PO BID [facility] Last Admin: 02/17/18 08:01 Dose: 12.5 mg Naloxone HCl (Narcan) 0.1 mg IV Q2MIN PRN PRN Reason: Opiate Reversal Potassium Chloride (Kdur) 20 meq PO [facility] Last Admin: 02/17/18 08:05 Dose: 20 meq Sodium Chloride (Saline Flush) 10 ml IV Q8 [facility] Last Admin: 02/17/18 05:54 Dose: 10 ml Medical - PN: A/P - Time Spent With Patient Total time spent is greater than 50% in coordination of care (as documented) at patient's floor/unit and/or counseling patient: 25 - 35 minutes (1) Atrial fibrillation Status: Chronic Assessment and plan: rate controlled cont metoprolol for heart failure. goal HR below 80. 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
[2018-02-17] MEDS: LEVOTHYROXINE 75 MCG TABLET PO SCH (13:45)
[2018-02-17] MEDS ORDERED: 0.9 % SODIUM CHLORIDE 500 ML IV ONE (18:56)
[2018-02-17] MEDS ORDERED: FUROSEMIDE 100 MG/10 ML VIAL IV SCH (21:00)
[2018-02-18] MEDS: 0.9 % SODIUM CHLORIDE 10 ML SYRINGE IV SCH ×3 (05:46→22:08)
[2018-02-18 06:46] LABS: Basophils # (Auto) 0 K/mcL (0.0-0.3); Basophils % (Auto) 0.3 % (0.0-2.0); Eosinophils # (Auto) 0.1 K/mcL (0.0-0.7); Eosinophils % (Auto) 0.8 % (0.0-7.0); Granulocytes % (Auto) 71.3 % (38.0-78.0); Lymphocytes % (Auto) 17.3 % (15.5-49.0); Mean Cell Volume 94.2 fL (80.0-100.0); Mean Corpuscular HGB Conc 31.9 g/dL (31.0-36.0); Monocytes # (Auto) 1.2 K/mcL (0.1-0.9); Monocytes % (Auto) 10.3 % (1.0-12.0); Platelet Count 197 K/mcL (140-440); Red Cell Distribution Width 15.6 % (11.5-14.5)
[2018-02-18 07:14] LABS: ALT/SGPT 6 U/l (0-40); Albumin 2.9 gm/dL (3.2-5.2); Albumin/Globulin Ratio 0.8 (1.0-2.3); Alkaline Phosphatase 69 U/L (39-117); Bilirubin,Direct < 0.2 mg/dL (0.0-0.3); Blood Urea Nitrogen 27 mg/dl (8-23); Gamma Glutamyl Transpeptidase 13 U/L (8-61); Uric Acid 10.8 mg/dL (2.5-8.0)
[2018-02-18] MEDS: POTASSIUM CHLORIDE 20 MEQ TABLET PO SCH (07:50)
[2018-02-18] MEDS: METOPROLOL TARTRATE 25 MG TABLET PO SCH ×2 (07:50→22:08)
[2018-02-18] MEDS: LEVOTHYROXINE 75 MCG TABLET PO SCH (07:50)
[2018-02-18] MEDS: ENOXAPARIN 40 MG/0.4 ML SYRINGE SQ SCH (07:50)
[2018-02-18] MEDS ORDERED: METOLAZONE 2.5 MG TABLET PO SCH (08:30)
[2018-02-18] MEDS: ERYTHROMYCIN OPHTH OINT 3.5GM TUBE OU SCH ×4 (08:54→22:08)
[2018-02-18] MEDS ORDERED: FUROSEMIDE 100 MG/10 ML VIAL IV SCH (09:00)
[2018-02-18] MEDS ORDERED: 0.9 % SODIUM CHLORIDE 1,000 ML IV SCH ×2 (09:45→10:08)
[2018-02-18] MEDS ORDERED: ACETAMINOPHEN 325 MG TABLET PO PRN (10:08)
[2018-02-18] MEDS: APIXABAN 5 MG TABLET PO SCH ×2 (11:11→22:08)
--- NOTE | 2018-02-18 15:07 | Internal Med Progress Note ---
Medical - PN: Subj Patient information: Note initiated : 02/18/18 at 3:05 pm Service Date, if different from initiated Date: [] Patient: Walker Rock a 87 y/o M admitted on 02/14/18 for Weakness/Hypoxic Hypercapnic Respiratory Failure. Chief Complaint: [] Interval history: pt down 6 liters yesterday and 7 liters the day before. Down 3 liters today. He feels much improved and is accompanied by his grandson. Pt is breathing much better and O2 on 3 liter is 88%. He wore bipap all night and is agreeable to wearing whenever he sleeps as well as getting one for his home. Says is tolerating caloric restriction here. Pt ambulated with PT down the [place] to Med Surg and back. - Constitutional Vitals: Vital Signs Temp Pulse Resp BP Pulse Ox 98.0 F 77 18 124/62 94 02/18/18 12:00 02/18/18 13:49 02/18/18 13:49 02/18/18 12:00 02/18/18 13:49 Period Temp Pulse Resp BP Sys/Sims Pulse Ox Last 24 Hr 97.9 F-98.4 F 63-95 11-26 104-151/60-134 91-97 Intake and Output 02/18/18 02/18/18 02/18/18 05:59 13:59 21:59 Intake Total 240 / 240 1100 / 1100 Output Total 1900 / 1900 2350 / 2350 900 / 900 Balance -1660 / -1660 -1250 / -1250 -900 / -900 Intake & Output: Intake & Output 02/18/18 02/18/18 02/18/18 05:59 13:59 21:59 Intake Total 240 / 240 1100 / 1100 Output Total 1900 / 1900 2350 / 2350 900 / 900 Balance -1660 / -1660 -1250 / -1250 -900 / -900 Intake: IV 500 / 500 Oral 240 / 240 600 / 600 Output: Urine Catheter Amount 1900 / 1900 2350 / 2350 900 / 900 Other: Meal Lunch Percent of Meal Consumed 100% General appearance: morbidly obese, no acute distress - Respiratory Respiratory exam: Present: rales (trace in bases). Absent: wheezes - Cardiovascular Cardiovascular exam: Present: irregular rhythm. Absent: systolic murmur - Extremities Exam Extremities exam: Present: pedal edema (2+. able to wear hospital stockings today. ) - Neurological Exam Neurological exam: Present: alert, normal gait Medical - PN: Obj Da - Labs CBC & Chem 7: 02/18/18 03:56 02/18/18 03:56 Labs: Abnormal Lab Results 02/18/18 02/18/18 02/17/18 03:56 03:56 04:03 WBC 11.5 H RDW 15.6 H Gran # 8.2 H [place] # (Auto) 1.2 H Sodium 131 L Potassium Chloride 82 L 85 L Carbon Dioxide 37 H 43 H* Anion Gap BUN 27 H Creatinine 1.3 H Glucose 59 L 52 L Uric Acid 10.8 H 9.8 H Phosphorus 4.7 H Total Bilirubin 1.3 H Lactate Dehydrogenase 288 H Albumin 2.9 L Globulin 3.8 H Albumin/Globulin Ratio 0.8 L 0.9 L 02/17/18 02/16/18 02/16/18 04:03 05:05 05:05 WBC 11.1 H RDW 16.0 H 16.4 H Gran # [place] # (Auto) 1.3 H 1.1 H Sodium Potassium 5.3 H Chloride 92 L Carbon Dioxide 37 H Anion Gap 7.0 L BUN Creatinine Glucose 60 L Uric Acid 9.2 H Phosphorus Total Bilirubin Lactate Dehydrogenase Albumin 2.7 L Globulin Albumin/Globulin Ratio 0.8 L Meds: Medications Acetaminophen (Tylenol) 650 mg PO Q4-6HP PRN PRN Reason: PAIN/FEVER > 101 Erythromycin (Ilotycin Ophth Oint) 1 ribbon OU QID [facility] Stop: 02/20/18 20:59 Last Admin: 02/18/18 14:33 Dose: 1 ribbon Furosemide (Lasix) 80 mg IV Q12 [facility] Sodium Chloride (Sodium Chloride 0.9%) 1,000 mls @ 100 mls/hr IV .Q10H [facility] Stop: 02/18/18 19:44 Last Admin: 02/18/18 10:45 Dose: Not Given Levothyroxine Sodium (Synthroid) 75 mcg PO QAMAC [facility] Metolazone (Zaroxolyn) 5 mg PO BID@0830,2030 [facility] Metoprolol Tartrate (Lopressor) 12.5 mg PO BID [facility] Potassium [facility] ([facility]ur) [facility] Sodium Chloride (Saline Flush) 10 ml IV Q8 [facility] Last Admin: 02/18/18 14:24 Dose: Not Given Medical - PN: A/P - Time Spent With Patient Total time spent is greater than 50% in coordination of care (as documented) at patient's floor/unit and/or counseling patient: Greater than 35 minutes (1) Atrial fibrillation Status: Chronic Assessment and plan: rate controlled cont metoprolol for heart failure. goal HR below 80. avoid hypotension in effort to diurese pts hr easily controlled on less medication. 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 Current Visit: Yes (3) Respiratory failure, [id number] Status: Acute Assessment and plan: will need to cont bipap for cor pulmonale and obesity hypoventilation. Baseline PCO2 appears to be 60 Current Visit: Yes (4) Hypoglycemia without diagnosis of diabetes mellitus Status: Acute Assessment and plan: will check TSH, free T4 cortisol and ACTH in the am Current Visit: Yes Medical - PN: Qual - VTE Deep Vein Thrombosis/Pulmonary Embolism Present on Admission: No
[2018-02-18] MEDS: METOLAZONE 2.5 MG TABLET PO SCH (20:27)
[2018-02-18] MEDS: FUROSEMIDE 100 MG/10 ML VIAL IV SCH (22:07)
[2018-02-19] MEDS: 0.9 % SODIUM CHLORIDE 10 ML SYRINGE IV SCH ×3 (05:44→20:57)
[2018-02-19 06:33] LABS: ALT/SGPT 12 U/l (0-40); Albumin 3.1 gm/dL (3.2-5.2); Albumin/Globulin Ratio 0.9 (1.0-2.3); Alkaline Phosphatase 67 U/L (39-117); Bilirubin,Direct < 0.2 mg/dL (0.0-0.3); Blood Urea Nitrogen 27 mg/dl (8-23); Free T4 (Free Thyroxine) 1.19 ng/dl (0.7-1.7); Gamma Glutamyl Transpeptidase 10 U/L (8-61); Uric Acid 11.9 mg/dL (2.5-8.0)
[2018-02-19] MEDS: METOPROLOL TARTRATE 25 MG TABLET PO SCH ×2 (10:02→20:43)
[2018-02-19] MEDS: POTASSIUM CHLORIDE 20 MEQ TABLET PO SCH (10:02)
[2018-02-19] MEDS: LEVOTHYROXINE 75 MCG TABLET PO SCH (10:03)
[2018-02-19] MEDS: APIXABAN 5 MG TABLET PO SCH ×2 (10:03→20:44)
[2018-02-19] MEDS: ERYTHROMYCIN OPHTH OINT 3.5GM TUBE OU SCH ×4 (10:44→20:56)
[2018-02-19] MEDS: BUMETANIDE 1 MG TABLET PO SCH (11:47)
--- NOTE | 2018-02-19 14:33 | Internal Med Progress Note ---
Medical - PN: Subj Patient information: Note initiated : 02/19/18 at 2:32 pm Service Date, if different from initiated Date: [] Patient: Walker Rock a 87 y/o M admitted on 02/14/18 for Weakness/Hypoxic Hypercapnic Respiratory Failure. Chief Complaint: [] Interval history: pt down 5.7 liters yesterday and 6.2 liters the day before. Down 3 liters today. He feels much improved and is accompanied by his grandson. Pt is breathing much better and O2 on 3 liter is 88%. He wore bipap all night and is agreeable to wearing whenever he sleeps as well as getting one for his home. Says is tolerating caloric restriction here. Pt ambulated with PT down the [place] to Med Surg and back. We are working on checking his ABG tonight pre-and then post-sleep in the morning for his obesity hypoventilation BiPAP qualification. Patient tells me that his legs hurt and were tingly burning 2 nights ago but not last night. - Constitutional Vitals: Vital Signs Temp Pulse Resp BP Pulse Ox 97.4 F 88 20 98/61 98 02/19/18 12:06 02/19/18 12:06 02/19/18 12:06 02/19/18 12:06 02/19/18 12:06 Period Temp Pulse Resp BP Sys/Sims Pulse Ox Last 24 Hr 97.4 F-98.0 F 66-88 2-20 98-126/61-78 93-98 Intake and Output 02/19/18 02/19/18 02/19/18 05:59 13:59 21:59 Intake Total 360 / 360 Output Total 2800 / 2800 Balance -2800 / -2800 360 / 360 Intake & Output: Intake & Output 02/19/18 02/19/18 02/19/18 05:59 13:59 21:59 Intake Total 360 / 360 Output Total 2800 / 2800 Balance -2800 / -2800 360 / 360 Intake: Oral 360 / 360 Output: Urine Catheter Amount 2800 / 2800 Other: Meal Breakfast Percent of Meal Consumed 100% Feeding Ability Assist with Tray Set Up - Respiratory Respiratory exam: Present: normal respiratory exam, CTAB - Cardiovascular Cardiovascular exam: Present: irregular rhythm - GI/Abdominal GI/Abdominal exam: Present: normal bowel sounds - Extremities Exam Extremities exam: Present: pedal edema (1+ to 2+) Medical - PN: Obj Da - Labs CBC & Chem 7: 02/18/18 03:56 02/19/18 03:45 Labs: Abnormal Lab Results 02/19/18 02/18/18 02/18/18 03:45 03:56 03:56 WBC 11.5 H RDW 15.6 H Gran # 8.2 H [place] # (Auto) 1.2 H Sodium 131 L Potassium 3.1 L Chloride 80 L 82 L Carbon Dioxide 45 H* 37 H BUN 27 H 27 H Creatinine 1.3 H Glucose 59 L Uric Acid 11.9 H 10.8 H Phosphorus Total Bilirubin 1.1 H 1.3 H Lactate Dehydrogenase 288 H Albumin 3.1 L 2.9 L Globulin 3.8 H Albumin/Globulin Ratio 0.9 L 0.8 L 02/17/18 02/17/18 04:03 04:03 WBC 11.1 H RDW 16.0 H Gran # [place] # (Auto) 1.3 H Sodium Potassium Chloride 85 L Carbon Dioxide 43 H* BUN Creatinine Glucose 52 L Uric Acid 9.8 H Phosphorus 4.7 H Total Bilirubin Lactate Dehydrogenase Albumin Globulin Albumin/Globulin Ratio 0.9 L Meds: Medications Acetaminophen (Tylenol) 650 mg PO Q4-6HP PRN PRN Reason: PAIN/FEVER > 101 Bumetanide (Bumex) 2 mg PO DAILY [facility] Last Admin: 02/19/18 11:47 Dose: 2 mg Erythromycin (Ilotycin Ophth Oint) 1 ribbon OU QID [facility] Stop: 02/20/18 20:59 Last Admin: 02/19/18 10:44 Dose: 1 ribbon Levothyroxine Sodium (Synthroid) 75 mcg PO QAMAC [facility] Last Admin: 02/19/18 10:03 Dose: 75 mcg Metoprolol Tartrate (Lopressor) 12.5 mg PO BID [facility] Last Admin: 02/19/18 10:02 Dose: 12.5 mg Potassium Chloride (Kdur) 20 meq PO QAC [facility] Last Admin: 02/19/18 10:02 Dose: 20 meq Sodium Chloride (Saline Flush) 10 ml IV Q8 [facility] Last Admin: 02/19/18 05:44 Dose: 10 ml Medical - PN: A/P - Time Spent With Patient Total time spent is greater than 50% in coordination of care (as documented) at patient's floor/unit and/or counseling patient: 25 - 35 minutes (1) Atrial fibrillation Status: Chronic Assessment and plan: rate controlled cont metoprolol for heart failure. goal HR below 80. avoid hypotension in effort to diurese pts hr easily controlled on less medication. 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 We will stop IV first mite and oral Zaroxolyn decreasing to just Bumex 2 mg orally daily as long as fluid is not increasing on this new medication then will trial that dose palpation Current Visit: Yes (3) Respiratory failure, [id number] Status: Acute Assessment and plan: will need to cont bipap for cor pulmonale and obesity hypoventilation. Baseline PCO2 appears to be 60 ABG to be checked tonight and then patient will sleep without BiPAP and check ABG in the morning Current Visit: Yes (4) Hypoglycemia without diagnosis of diabetes mellitus Status: Acute Assessment and plan: will check TSH, free T4 cortisol and ACTH in the am a.m. cortisol was 13 this morning and appears appropriate given that the patient is not in acute distress Current Visit: Yes Medical - PN: Qual - VTE Deep Vein Thrombosis/Pulmonary Embolism Present on Admission: No
[2018-02-19] MEDS: FUROSEMIDE 100 MG/10 ML VIAL IV SCH (18:48)
[2018-02-19] MEDS: METOLAZONE 2.5 MG TABLET PO SCH (18:48)
[2018-02-20 06:07] LABS: ALT/SGPT 7 U/l (0-40); Albumin 3.2 gm/dL (3.2-5.2); Albumin/Globulin Ratio 0.9 (1.0-2.3); Alkaline Phosphatase 66 U/L (39-117); Bilirubin,Direct < 0.2 mg/dL (0.0-0.3); Blood Urea Nitrogen 32 mg/dl (8-23); Gamma Glutamyl Transpeptidase 13 U/L (8-61); Uric Acid 11.1 mg/dL (2.5-8.0)
[2018-02-20] MEDS ORDERED: acetaZOLAMIDE 250 MG TABLET PO ONE (07:52)
[2018-02-20] MEDS: 0.9 % SODIUM CHLORIDE 10 ML SYRINGE IV SCH ×3 (07:59→21:02)
[2018-02-20] MEDS: LEVOTHYROXINE 75 MCG TABLET PO SCH (07:59)
[2018-02-20] MEDS: POTASSIUM CHLORIDE 20 MEQ TABLET PO SCH (08:52)
[2018-02-20] MEDS: METOPROLOL TARTRATE 25 MG TABLET PO SCH ×2 (08:52→20:55)
[2018-02-20] MEDS: APIXABAN 5 MG TABLET PO SCH ×2 (08:53→20:55)
[2018-02-20] MEDS: BUMETANIDE 1 MG TABLET PO SCH (08:53)
[2018-02-20] MEDS: ERYTHROMYCIN OPHTH OINT 3.5GM TUBE OU SCH ×3 (08:59→17:45)
--- NOTE | 2018-02-20 10:10 | Internal Med Progress Note ---
Medical - PN: Subj Patient information: Note initiated : 02/20/18 at 10:07 am Service Date, if different from initiated Date: [] Patient: Walker Rock a 87 y/o M admitted on 02/14/18 for Weakness/Hypoxic Hypercapnic Respiratory Failure. Chief Complaint: [] Interval history: Patient seen examined, by the bed side, no acute overnight events Pt was off bipap last night .to see if we could get him qualified for BIPAP for hos GABBI HIs ABG last night ABG this AM Pt was on 3 L oxygen he is negative [id number] since admission, and neg 2600 yesterday he will be on oral bumex today, I will add one dose of acetazolamide for metabolic alkalosis to see if this helps I am trying to get in touch with Dr Aleman to see if he can guide us in further treatment of his Gabbi Pertinent ROS: Denies headache, dizziness Denies chest pain, palpitations Denies cough or shortness of breath Denies abdominal pain, nausea or vomiting. - Constitutional Vitals: Vital Signs Temp Pulse Resp BP Pulse Ox 98.1 F 82 18 134/67 95 02/20/18 04:20 02/19/18 19:17 02/20/18 04:20 02/20/18 04:20 02/20/18 04:20 Period Temp Pulse Resp BP Sys/Sims Pulse Ox Last 24 Hr 97.0 F-98.1 F 80-88 14-20 98-134/58-71 94-98 Intake and Output 02/19/18 02/20/18 02/20/18 21:59 05:59 13:59 Intake Total 360 / 360 480 / 480 400 / 400 Output Total 2800 / 2800 1000 / 1000 350 / 350 Balance -2440 / -2440 -520 / -520 50 / 50 Weight 338 lb Intake & Output: Intake & Output 02/19/18 02/20/18 02/20/18 21:59 05:59 13:59 Intake Total 360 / 360 480 / 480 400 / 400 Output Total 2800 / 2800 1000 / 1000 350 / 350 Balance -2440 / -2440 -520 / -520 50 / 50 Weight 338 lb Intake: Oral 360 / 360 400 / 400 GI Tube Flush 480 / 480 Output: Urine Catheter Amount 1999 / 1999 Void Amount 800 / 800 1000 / 1000 350 / 350 Other: Meal Dinner Breakfast Percent of Meal Consumed 100% 100% # Voids 1 Exam: Constitutional; Afebrile, cooperative, alert, not in distress. Eyes- No icterus, , No periorbital swelling Ears- Ext ear normal, hearing normal to conversation with use of a hearing aid. Neck- Midline trachea, supple Respiratory system: Air Entry equal on both sides, No crackles or wheezing, no rhonchi. CVS- Rate rhythm regular, S1,S2 heard, no gallop, no rub. Abdomen- Soft nontender abdomen, no organomegaly, no tenderness, no guarding or rigidity, REHAB TECH- AOOx3, moving all extremities, no gross focal deficit noted. Lower extremity, Edema still carrol ++, much improved from admission. Medical - PN: Obj Da - Labs CBC & Chem 7: 02/18/18 03:56 02/20/18 03:40 Labs: Abnormal Lab Results 02/20/18 02/19/18 02/18/18 03:40 03:45 03:56 WBC RDW Gran # Wood # (Auto) Sodium 131 L Potassium 3.1 L Chloride 83 L 80 L 82 L Carbon Dioxide 42 H* 45 H* 37 H BUN 32 H 27 H 27 H Creatinine 1.3 H Glucose 59 L Uric Acid 11.1 H 11.9 H 10.8 H Total Bilirubin 1.1 H 1.1 H 1.3 H Lactate Dehydrogenase 288 H Albumin 3.1 L 2.9 L Globulin 3.8 H Albumin/Globulin Ratio 0.9 L 0.9 L 0.8 L 02/18/18 03:56 WBC 11.5 H RDW 15.6 H Gran # 8.2 H Wood # (Auto) 1.2 H Sodium Potassium Chloride Carbon Dioxide BUN Creatinine Glucose Uric Acid Total Bilirubin Lactate Dehydrogenase Albumin Globulin Albumin/Globulin Ratio Meds: Medications Acetaminophen (Tylenol) 650 mg PO Q4-6HP PRN PRN Reason: PAIN/FEVER > 101 Bumetanide (Bumex) 2 mg PO DAILY [facility] Last Admin: 02/20/18 08:53 Dose: 2 mg Erythromycin (Ilotycin Ophth Oint) 1 ribbon OU QID [facility] Stop: 02/20/18 20:59 Last Admin: 02/20/18 08:59 Dose: 1 ribbon Levothyroxine Sodium (Synthroid) 75 mcg PO QAMAC [facility] Last Admin: 02/20/18 07:59 Dose: 75 mcg Metoprolol Tartrate (Lopressor) 12.5 mg PO BID [facility] Last Admin: 02/20/18 08:52 Dose: 12.5 mg Potassium Chloride (Kdur) 20 meq PO QAC [facility] Last Admin: 02/20/18 08:52 Dose: 20 meq Sodium Chloride (Saline Flush) 10 ml IV Q8 [facility] Last Admin: 02/20/18 07:59 Dose: 10 ml Medical - PN: A/P - Time Spent With Patient Total time spent is greater than 50% in coordination of care (as documented) at patient's floor/unit and/or counseling patient: - Narrative A/P Narrative: A/P Acute hypoxic Hypercapnic respiratory failure- Improving with oxygen via nasal canula, will eventually need bipap/ capap therapy for his sleep apnea/ Obesity hypoventilation syndrome. I will monitor him one additional day on oral diuretics to see if he does well, Plan to see if we can get pulmonary help. Congestive heart failure/ Systolic and diastolic NYHA class3- neg 28 L fluid since admission, still has edema, will see how he does on oral diuretics, if tolerates well can plan for D/c in am Atrial fibrillation- rate control with metoprolol, follow up outpatient with cardiology Hypoglycemia: TSH cortisol neg, glucose levels in normal range. Gout- stable no acute flare up Hypothyroidism- tsh wnl, on levothyroxine continue same DVT hep sq DNR code status. Medical - PN: Qual - VTE Deep Vein Thrombosis/Pulmonary Embolism Present on Admission: No
[2018-02-20] MEDS ORDERED: ALBUTEROL SULFATE 2.5 MG/3 ML NEBULIZER ONE (14:01)
--- NOTE | 2018-02-20 14:24 | XRay Report ---
HISTORY: Reason for Exam:hypoxia FINDINGS: There are small bilateral pleural effusions seen on the lateral view in the posterior costophrenic sulci. The lungs are clear. The small infiltrate seen medially at the right lung base on 02/15/18 has resolved. There is no evidence of an underlying mass. The heart size is normal and has diminished in size. There is no pulmonary vascular congestion. IMPRESSION: Small bilateral pleural effusions Interpreted and Authenticated by: Andre Blunt 02/20/18
[2018-02-21] MEDS: 0.9 % SODIUM CHLORIDE 10 ML SYRINGE IV SCH (05:36)
[2018-02-21 05:48] LABS: ALT/SGPT 9 U/l (0-40); Albumin 3.1 gm/dL (3.2-5.2); Albumin/Globulin Ratio 0.8 (1.0-2.3); Alkaline Phosphatase 67 U/L (39-117); Bilirubin,Direct 0.2 mg/dL (0.0-0.3); Blood Urea Nitrogen 31 mg/dl (8-23); Gamma Glutamyl Transpeptidase 12 U/L (8-61); Uric Acid 11.8 mg/dL (2.5-8.0)
--- NOTE | 2018-02-21 07:28 | Pulmonary Function Test ---
A spirometry pre- and post- the acute administration of bronchodilator is presented for evaluation. SPIROMETRY: The forced vital capacity is severely reduced at 49% of predicted. In proportion to that number the FEV1 is relatively increased and moderately reduced at 57% of predicted. Mid expiratory flows are further relatively increased at 86% of predicted. This pattern of the flow volume loop is based on the presence of difficulty with the patient exhaling for the adequate timeframe. IMPRESSION: Pulmonary function study compromised by the patient's ability to understand and/or comply with the emission technician's instructions and performance of the test. It is noted that the patient is in the hospital and 87 years of age. Clinical correlation is required. There is no prior study for comparison. KJP:kh Job ID: [id number] Doc ID: [id number] Michael Aleman MD
[2018-02-21] MEDS: LEVOTHYROXINE 75 MCG TABLET PO SCH (07:36)
[2018-02-21] MEDS ORDERED: POTASSIUM CHLORIDE 20 MEQ PACKET PO ONE (07:40)
[2018-02-21] MEDS: BUMETANIDE 1 MG TABLET PO SCH (08:58)
[2018-02-21] MEDS: APIXABAN 5 MG TABLET PO SCH (08:58)
[2018-02-21] MEDS: POTASSIUM CHLORIDE 20 MEQ TABLET PO SCH (08:58)
[2018-02-21] MEDS: METOPROLOL TARTRATE 25 MG TABLET PO SCH (08:59)
--- NOTE | 2018-02-21 10:33 | Discharge Summary ---
Medical - DS: Prov Patient information: Note initiated : 02/21/18 at 10:31 am Service Date, if different from initiated Date: [] Patient: Walker Rock a 87 y/o M admitted on 02/14/18 for Weakness/Hypoxic Hypercapnic Respiratory Failure. Chief Complaint: [] Date of admission: 02/14/18 22:31 Discharge date: 02/21/18 Primary care physician: Petr Coto Admitting clinician: Latoya Frankel Consults: 02/14/18 21:21 Consult to Physician [CONS] Stat Comment: Consulting Provider: Latoya Frankel Reason For Exam: Physician to Consult Discharging clinician: Latoya Frankel Medical - DS: Meds - Discharge Medications Prescriptions: Apixaban [Eliquis] 5 mg PO BID #60 tab Bumetanide [Bumex] 2 mg PO DAILY #30 tab Levothyroxine [Synthroid] 75 mcg PO QAMAC #30 tab Metoprolol Tartrate [Lopressor] 12.5 mg PO BID #60 tab Active and Home Medications: Home Medications Digoxin [Digitek] 125 mcg PO Q3-4DAYS 02/14/18 [History Confirmed 02/14/18 Last Taken Unknown] Diltiazem [Cardizem Cd] 240 mg PO DAILY 02/14/18 [History Confirmed 02/14/18 Last Taken Unknown] Furosemide [Lasix] 40 mg PO BID 02/14/18 [History Confirmed 02/14/18 Last Taken Unknown] Levothyroxine [Synthroid] 50 mcg PO HS 02/14/18 [History Confirmed 02/14/18 Last Taken Unknown] Lisinopril [Zestril] 10 mg PO QDAY 02/14/18 [History Confirmed 02/14/18 Last Taken Unknown] Potassium Chloride [Kdur] 20 meq PO DAILY 02/14/18 [History Confirmed 02/14/18 Last Taken Unknown] Medical - DS: Hosp Hospital course: Mr. Rock is a 87 year old M with history of morbid obesity, congestive heart failure, atrial fibrillation, obstructive sleep apnea not using CPAP. The patient notes he was doing well approximately a week ago when he came down with a viral syndrome-head cold. The patient notes that since then he has not been doing very well. He has been more tired and fatigued than usual. He has been having some runny nose cough and just a generalized sensation of weakness. This has progressively gotten worse. At baseline patient does not do much activities however the and the patient denies any shortness of breath or any change in his activity level. On the day of admission the noticed that his breathing pattern was abnormal and he showed signs of labored breathing and therefore they brought him to the hospital. In the emergency room the patient was afebrile, heart rate 76 respirations 24 blood pressure 138/81, he was hypoxic with the oxygen saturation in the 70s. Labs showed hemoglobin of 16, WBC 10.3, platelets 206. Sodium 134 potassium 5.1 , chloride 91, bicarbonate 33 BUN 16 creatinine 1.2 glucose 97 BNP is 784. Digoxin level pending. ABG was drawn which showed pH of 7.31 PCO2 77 PO2 50 this was on 3 L of oxygen. The patient was placed on BiPAP. Chest x-ray showed bilateral increased interstitial markings consistent with heart failure, he also had cardiomegaly. EKG showed low voltage, right axis, atrial fibrillation, right bundle branch block. No previous EKG to compare. I reviewed his previous echocardiogram done in 2015 which showed mild LV enlargement, moderate LVH and normal systolic function. He also had a cardiac perfusion study done in the same month which showed ejection fraction of 51% and inferior wall hypoperfusion which was attributed to diaphragmatic artifact. Given that the patient has had significant volume overload issues, hypoxic requiring BiPAP to maintain oxygen levels he was admitted to PCU for further management CHF: The patient was significantly volume overloaded, the patient was treated with IV lasix, we were able to remove 24868 ml of fluid, the patient still had some edema, but felt much better after significant volume loss. I am still not certain that the patient is at baseline, but has shown significant improvement. We are switching his oral lasix to oral bumex 2mg once daily at the time of discharge, he is tolerating the medication well. Chr Respiratory failure: Patient remained hypoxic during the hospital stay, despite improvement in his chf, ABG shows co2 retention, the patient has h/o GABBI and has not been compliant with his cpap machine. he also is morbidly obese and we feel that CHF/ Obesity hypoventilation syndrome is playing a huge role in the patients hypoxia and hyper capnia. Unfortunately he did not qualify for a Trilogy bipap, we will refer him to pulmonary as outpatient. I did review the case with Dr Aleman. The patient will need to have a sleep study done as soon as feasible and then started on cpap/ bipap based on the results. Atrial fibrillation- rate control with metoprolol, follow up outpatient with cardiology, We have started him on eliquis for anticoagulation. The patient home medication digoxin and cardizem has been held as he seems to be dong well with just 12.5mg bid of metoprolol for rate control Gout- stable continue allopurinol, no flareup. Hypothyroidism- TSH was abnl, he was on a strange dosing of levothyroxine, his dose is upped to 75mcg once daily in AM before breakfast, patient would need to have tsh checked by PCP in 4-6 weeks and titrate the dosing further. Home oxygen being set up at discharge Advised 4L continous at rest , 6L with activity Oxygen saturation 84% on room air, 88% with ambulation with 6 L 91% on 4L at rest. Discharge diagnosis: CHF exacerbation, Obesity Hypoventilation syndrome - Time Spent with Patient Total time spent providing and/or coordinating discharge services: Greater than 30 minutes Medical - DS: Exam - Constitutional Vitals: Vital Signs Temp Pulse Resp BP BP Pulse Ox 02/21/18 07:40 98.8 F 18 113/75 93 02/21/18 04:24 97.0 F 18 92/60 91 02/20/18 20:06 96.8 F L 18 102/58 92 02/20/18 11:04 97.9 F 78 20 100/55 95 Intake and Output 02/20/18 02/21/18 02/21/18 21:59 05:59 13:59 Intake Total 700 / 700 Output Total 1800 / 1800 1000 / 1000 Balance -1100 / -1100 -1000 / -1000 Intake: Oral 700 / 700 Output: Void Amount 1800 / 1800 1000 / 1000 Other: Meal Dinner Percent of Meal Consumed 100% # Voids 1 Weight 354 lb 4 oz Additional comments: Constitutional; Afebrile, cooperative, alert, not in distress. Eyes- No icterus, , No periorbital swelling Ears- Ext ear normal, hearing normal to conversation. Neck- Midline trachea, supple Respiratory system: Air Entry equal on both sides, No crackles or wheezing, no rhonchi. CVS- Rate rhythm irregular, S1,S2 heard, no gallop, no rub. Abdomen- Soft nontender abdomen, no organomegaly, no tenderness, no guarding or rigidity, SALES SECRETARY- AOOx3, moving all extremities, no gross focal deficit noted. Medical - DS: Data Procedures and tests throughout hospitalization: Echo lv normal size, mild to moderate lvh lv borderline reduced RA/RV moderately dialated Labs on day of discharge: Labs from last 24 hours 02/21/18 03:30 Sodium 133 Potassium 3.2 L Chloride 84 L Carbon Dioxide 39 H Anion Gap 10.0 BUN 31 H Creatinine 1.1 GFR Calculation 60 Glucose 83 Uric Acid 11.8 H Calcium 9.5 Phosphorus 3.6 Magnesium 1.8 Total Bilirubin 1.2 H Direct Bilirubin 0.2 GGT 12 AST 28 ALT 9 Alkaline Phosphatase 67 Lactate Dehydrogenase 215 Total Protein 6.9 Albumin 3.1 L Globulin 3.8 H Albumin/Globulin Ratio 0.8 L Triglycerides 69 Medical - DS: A/P - Patient/Caregiver Discharge Instructions Activity: increase activity as tolerated, wear oxygen at all times Diet: Cardiac Additional Instructions: You are scheduled for a sleep study at [facility] on , March 07 at 7:15pm, check in at the out patient desk. They will contact you at home after discharge with more information. Call if you have any questions. Follow up with PCP in 1 day , we are unable to make a referral for sleep study as the lab wants a referral from PCP. Follow up with Cardiology in 2-4 weeks, Recommend PCP check BMP in 1 week, and TSH in 4-6 week Follow up with Dr Aleman in 3-4 weeks Go to the ER if worsening symptoms, chest pain, fever or worsening shortness of breath We have made some changes to your medication regime Please stop the digoxin and cardizem and lisinopril. We have changed your thyroid medication to 75mcg once daily in morning. take this medication 30mins before breakfast on a empty stomach. Please stop the furosemide (lasix) We have switched you to bumex 2mg once daily. For your atrial fibrillation we have started on you eliquis 5mg twice daily. If you notice any blood, in stools, urine. or black stools please stop this medication and go to the ER or talk to your PCP. Wear oxygen at all times Prescriptions: Apixaban [Eliquis] 5 mg PO BID #60 tab Bumetanide [Bumex] 2 mg PO DAILY #30 tab Levothyroxine [Synthroid] 75 mcg PO QAMAC #30 tab Metoprolol Tartrate [Lopressor] 12.5 mg PO BID #60 tab - Follow up Plan Follow up with: Petr Coto MD [Primary Care Provider] - 02/22/18 11:10 am (Check in is at 11:10am. This appointment is for your referral for the sleep study. Your infromation regarding this hospital stay has been faxed to your PCP. ) Disposition: Home, Self-Care Prognosis: Fair Rehab Potential: Fair I certify that the patient requires SNF services: No Overall status at discharge: patient is progressing back to baseline Medical - DS: Qual - VTE Deep Vein Thrombosis/Pulmonary Embolism Present on Admission: No
[2018-02-24 12:59] LABS: Adrenocorticotropic Hormone 24 pg/mL (6-50)
== END 2018-02-21 13:30 | disposition home or self-care (01) | DRG 291 ==
LOC: ED 19:31 → ICU 22:31
PROVIDERS: ADMIT Internal Medicine; ATTEND Internal Medicine